=== PATIENT | male | born 1980 | race Caucasian/White ===

== ENCOUNTER → 2017-06-21 | Outpatient (CLI) | payer OTHER ==
[~2017-06-21] MED LIST: OPTIRAY 320 IV PRN
--- NOTE | 2017-06-21 09:59 | DIAGNOSTIC IMAGING REPORT ---
CHEST CTA, AORTA PROTOCOL CT DOSE: 1271.27 mGy.cm HISTORY: THORACIC AORTIC ANEURYSM TECHNIQUE: Multiaxial CT images of the chest were performed both before and after the intravenous administration of contrast to evaluate the aorta. Maximal intensity projection images were also obtained. A dose lowering technique was utilized adhering to the principles of ALARA. COMPARISON STUDY: None. FINDINGS: Noncontrast imaging through the chest shows no evidence for an intramural hematoma within the thoracic aorta. The ascending thoracic aorta at the level the main pulmonary artery measures up to 4.3 cm in diameter. The aortic arch and descending thoracic aorta are normal in caliber. No evidence for an aortic dissection. The central pulmonary arteries are patent. The heart is normal in size. No pleural or pericardial effusions. The visualized liver, spleen, and adrenal glands are unremarkable. No mediastinal or hilar lymphadenopathy. No fractures within the visualized osseous structures. No pneumothorax. The lungs are clear. IMPRESSION: Mild aneurysmal dilatation of the ascending thoracic aorta which measures up to 4.3 cm in diameter. Electronically signed by: Fede Georges M.D. 06/21/2017 9:57 AM Dictated Date/Time: 06/21/2017 9:51 AM
== END | disposition home or self-care (01) ==
LOC: C.CTS 08:49
PROVIDERS: ATTEND Physician Assistant Medical
DX: I71.2 Thoracic aortic aneurysm, without rupture (principal)